=== PATIENT | female | born 1995 | race Caucasian/White ===

== ENCOUNTER 2024-01-10 21:45 | Emergency (ER) | payer MEDICAID, OTHER, SELFPAY ==
[2024-01-10 21:46] VITALS: BP 124/79; PULSE 72; RESP 22; TEMP 37.1; O2SAT 99; BMI 23.0
[2024-01-10 22:20] LABS: UR Morphine/Opiate cutoff 300 Negative (Negative); Ur Creatinine Normal (Normal); Ur Specific Gravity Normal (Normal); Urine Amphetamines Negative (Negative); Urine Barbiturates Negative (Negative); Urine Benzodiazepines Negative (Negative); Urine Cocaine Negative (Negative); Urine MDMA Negative (Negative); Urine Methadone Negative (Negative); Urine Methamphetamines Negative (Negative); Urine Oxycodone Negative (Negative); Urine Phencyclidine Negative (Negative); Urine Tetrahydrocannabinol Positive (Negative); Urine Tricyclic Antidepressant Negative (Negative); Urine pH Normal (Normal)
--- NOTE | 2024-01-10 22:20 | PC.NURSE ---
Patient getting agitated and restless, exiting room stating she wants to leave. Telling staff we are not even helping her and haven't even gave her any medications. This RN had just spoke with provider about patient's behavior and suicidal intent tonight leading to her coming to ER, MD gave verbal orders for PO Ativan. This RN approached patient and informed her we have medication to help ease her anxiety and agitation. She is agreeable to take medication but still wanting to leave ER. MD updated again and this RN requested he see her soon.
--- NOTE | 2024-01-10 22:20 | ED.PSYCH ---
HPI - Psych General Chief Complaint: Psychiatric Symptoms Stated Complaint: SI Time Seen by Provider: 01/10/24 22:19 Source: patient and other Mode of arrival: Family Vehicle History of Present Illness HPI Narrative: 28-year-old female with thoughts of harming herself by swallowing pills, denies actually swelling any pills, feels quite anxious, has not been able to sleep for multiple days. She denies drug or alcohol abuse. She denies recent illness symptoms, fevers, cough, shortness of breath, abdominal pain, diarrhea, nausea, vomiting. She denies any pain to head, face, neck, chest, upper back, lower back, abdomen, pelvis, upper extremities, lower extremities Related Data Home Medications Medication Instructions Recorded Confirmed divalproex 500 mg tablet,delayed 500 mg PO BID 01/10/24 01/10/24 release lamotrigine 200 mg tablet 200 mg PO DAILY 01/10/24 01/10/24 propranolol 10 mg tablet 10 mg PO BID PRN Anxiety 01/10/24 01/10/24 quetiapine 150 mg tablet,extended 150 mg PO ONCE PM 01/10/24 01/10/24 release 24 hr quetiapine 50 mg tablet 50 mg PO BEDTIME PRN Insomnia 01/10/24 01/10/24 Previous Rx's Medication Instructions Recorded hydroxyzine HCl 50 mg tablet 50 mg PO BEDTIME #7 tabs 01/10/24 Allergies Allergy/AdvReac Type Severity Reaction Status Date / Time tioconazole Allergy Verified 01/10/24 22:47 [From Monistat 1 (tioconazole)] Review of Systems Review of Systems Narrative: Per HPI Patient History Substance Use Type: marijuana Exam Narrative Exam Narrative: GENERAL: Well-developed patient, in mild distress. HEAD: Atraumatic. Normocephalic. EYES: Pupils equal round and reactive. Extraocular motions intact. No scleral icterus. No injection or drainage. ENT: Nose without bleeding, purulent drainage. Throat without erythema, tonsillar hypertrophy or exudate. Airway patent. Facial piercings, ear piercings, tongue piercing, earlobe gauges, none appear infected. NECK: Trachea midline. Non tender CARDIOVASCULAR: Regular rate and rhythm without murmurs, gallops, or rubs. RESPIRATORY: Clear to auscultation. Breath sounds equal bilaterally. No wheezes, rales, or rhonchi. GASTROINTESTINAL: Abdomen soft, non-tender, nondistended. EXTREMITIES: No edema or joint tenderness. BACK: Nontender without deformity or crepitance. No flank tenderness. NEURO: AOx3. SKIN: No rash or erythema of visible areas Initial Vital Signs Initial Vital Signs: Vital Signs Temperature 98.7 F 01/10/24 21:46 Pulse Rate 72 01/10/24 21:46 Respiratory Rate 22 01/10/24 21:46 Blood Pressure 124/79 01/10/24 21:46 Pulse Oximetry 99 01/10/24 21:46 Oxygen Delivery Method Room Air 01/10/24 21:46 Course Orders Ordered: ED Orders 01/10/24 22:04 COVID19 -Nasal RAPID Stat Urine Drug Screen, Rapid Stat 01/10/24 22:43 Acetaminophen Stat Complete Blood Count AUTO DIFF Stat Comprehensive Metabolic Panel Stat Ethanol (ETOH) Stat Free T4, Direct Thyroxine Stat Salicylate Stat Thyroid Stimulating Hormone Stat 01/10/24 22:46 Consult to [facility] [place] - Engineering Librarian Stat Discontinued Medications Hydroxyzine HCl (Hydroxyzine Hcl 25 Mg Tablet) 50 mg PO NOW ONE Stop: 01/10/24 23:26 Last Admin: 01/10/24 23:31 Dose: 50 mg Documented By: JOSEE Lorazepam (Lorazepam 0.5 Mg Tablet) 1 mg PO NOW ONE Stop: 01/10/24 22:21 Last Admin: 01/10/24 22:23 Dose: 1 mg Documented By: PIEDAD Potassium Chloride (Potassium Chloride 20 Meq/15 Ml Udc) 20 meq PO NOW ONE Stop: 01/10/24 23:19 Last Admin: 01/10/24 23:31 Dose: 20 meq Documented By: JOSEE Vital Signs Vital signs: Vital Signs - 8 hr 01/10/24 21:46 Temperature 98.7 F Pulse Rate 72 Respiratory Rate 22 Blood Pressure 124/79 Pulse Oximetry 99 Oxygen Delivery Method Room Air MDM - Psych Lab Data Attestation: I reviewed the patient's lab results. Lab results narrative: Mildly low potassium noted, UDS positive for cannabis. HCG negative. Serum CO2 24. Renal function normal. Liver functions unremarkable. 01/10/24 22:43 01/10/24 22:43 Labs: Lab Results 01/10/24 01/10/24 Range/Units 22:04 22:43 WBC 10.6 (4.5-11.0) X10^3/uL RBC 3.80 L (4.0-5.2) X10^6/uL Hgb 12.3 (12.0-16.0) g/dL Hct 35.2 L (36-46) % MCV 92.7 (80-100) fL MCH 32.4 (26-34) PG MCHC 34.9 (30-36) % RDW 13.1 (11.6-14.8) % Plt Count 233 (150-400) X10^3/uL Neut % (Auto) 65.6 (50-75) % Lymph % (Auto) 23.9 L (25-40) % [place] % (Auto) 9.7 (3-14) % Eos % (Auto) 0.5 L (2-4) % Baso % (Auto) 0.3 (0-2) % Neut # (Auto) 7000 (1077-7786) /uL Lymph # (Auto) 2500 (6991-1644) /uL [place]att # (Auto) 1000 H (0-900) /uL Eos # (Auto) 100 (0-450) /uL Baso # (Auto) 0 (0-100) /uL Sodium 141 (137-145) mmol/L Potassium 3.3 L (3.4-5.1) mmol/L Chloride 110 H (98-107) mmol/L Carbon Dioxide 24 (22-32) mmol/L BUN 14 (7-17) mg/dL Creatinine 0.95 (0.52-1.04) mg/dL Estimated GFR > 60 (>60) mL/min BUN/Creatinine Ratio 14.7 (6-22) Glucose 93 (70-100) mg/dL Calcium 8.9 (8.4-10.2) mg/dL Total Bilirubin 0.4 (0.2-1.3) mg/dL AST 25 (14-36) IU/L ALT 13 (<35) IU/L Alkaline Phosphatase 58 (38-126) U/L Total Protein 7.3 (6.3-8.2) g/dL Albumin 4.4 (3.5-5.0) g/dL Globulin 2.9 (1.7-4.1) g/dL Albumin/Globulin Ratio 1.5 (1.0-2.8) TSH 1.88 (0.47-4.68) uIU/mL Free T4 1.16 (0.78-2.19) ng/dL Salicylates 3.8 (<20) mg/dL U Opiates 300ng/mL cut Negative (Negative) Ur Oxycodone Screen Negative (Negative) Urine Methadone Screen Negative (Negative) Acetaminophen < 10 (10-30) ug/mL Ur Barbiturates Screen Negative (Negative) U Tricyclic Antidepress Negative (Negative) Ur Phencyclidine Scrn Negative (Negative) Ur Amphetamines Screen Negative (Negative) U Methamphetamines Scrn Negative (Negative) Ur MDMA Scrn (Ecstasy) Negative (Negative) U Benzodiazepines Scrn Negative (Negative) Urine Cocaine Screen Negative (Negative) U Marijuana (THC) Screen Positive H (Negative) Urine pH Normal (Normal) Urine Specific [place] Normal (Normal) Ethyl Alcohol < 10 ( - 10) mg/dL Ur Creatinine Normal (Normal) SARS-CoV-2 (PCR) Negative (Negative) Point of Care Testing Test Results Negative Urine Dip Bedside Urine Glucose Negative Bedside Urine Bilirubin - Negative Bedside Urine Ketone - Negative Urine Specific [place] 1.015 Bedside Urine Occult Blood +/- Bedside Urine pH 6.0 Bedside Urine Protein +/- 15 Bedside Urine Urobilinogen - Negative Bedside Urine Nitrite - Negative Bedside Urine Leukocytes - Negative Esterase MDM Narrative Medical decision making narrative: 28-year-old female with anxiety, had thoughts of hurting herself by swallowing pills, did not actually swallow any pills. Feels anxious, unable to sleep recent days. She is willing to take anti-anxiety medications. Screening labs sent. P.o. Ativan given Screening labs remarkable for urine drug screen positive for cannabis, ethanol negative, low potassium 3.3 mild, oral potassium repletion ordered and taken. Patient seemed interested in trial of hydroxyzine, p.o. hydroxyzine 50 mg dose ordered and taken. Patient feels improved, denies any thoughts of hurting herself or others, she would like to go home, friend/neighbor is willing to be with her [place] and to dispense her medications. Patient and friend feel that this is a safe plan, seems reasonable. Advised to contact her mental health provider on Friday. Return precautions discussed. Discharge Plan Departure Patient Disposition: Home Clinical Impression: Anxiety, Hypokalemia, History of bipolar disorder, Insomnia Activity Restrictions/Additional Instructions: History of bipolar disorder, anxiety, recent worsening of symptoms, increased anxiety, not sleeping well. Had initial thoughts swallowing medications, none actually ingested. Oral Ativan dose given, symptoms improved. Trial of hydroxyzine to help with sleep, 1 tablet at night, 7 tablets prescribed. Home tonight with friend who is willing to watch to, and to help dispensed your medications. Follow up with your mental health provider on Friday day after tomorrow. Mildly low blood potassium noted, oral potassium given, consider recheck potassium and follow up with the regular doctor. You denied thoughts of hurting herself or others. Return earlier to this/nearest emergency department for any change worsening symptoms or any concerns prior Prescriptions: New hydroxyzine HCl 50 mg tablet 50 mg PO BEDTIME Qty: 7 0RF No Action lamotrigine 200 mg tablet 200 mg PO DAILY divalproex 500 mg tablet,delayed release (DR/EC) 500 mg PO BID propranolol 10 mg tablet 10 mg PO BID PRN (Reason: Anxiety) quetiapine 50 mg tablet 50 mg PO BEDTIME PRN (Reason: Insomnia) Rx Instructions: Take 1-2 tablets by mouth at bedtime as needed for insomnia or anxiety. quetiapine 150 mg tablet extended release 24 hr 150 mg PO ONCE PM Referrals: Miscellaneous,Doctor, MD [Primary Care Provider] - Stand Alone Forms: Patient Portal/API
[2024-01-10] MEDS: LORazepam 0.5 MG TABLET 1 MG PO (22:23)
[2024-01-10 22:29] LABS: COVID19 -Nasal RAPID Negative (Negative)
[2024-01-10 22:53] LABS: Add Manual Diff / Slide Review NO; Basophils Absolute Auto 0 /uL (0-100); Basophils Percent Auto 0.3 % (0-2); Eosinophils Absolute Auto 100 /uL (0-450); Eosinophils Percent Auto 0.5 % (2-4); Hematocrit 35.2 % (36-46); Hemoglobin 12.3 g/dL (12.0-16.0); Lymphocytes Absolute Auto 2500 /uL (1100-4500); Lymphocytes Percent Auto 23.9 % (25-40); Mean Corpuscular HGB Conc 34.9 % (30-36); Mean Corpuscular Hemoglobin 32.4 PG (26-34); Mean Corpuscular Volume 92.7 fL (80-100); Monocytes Absolute Auto 1000 /uL (0-900); Monocytes Percent Auto 9.7 % (3-14); Neutrophils Absolute Auto 7000 /uL (1500-7000); Neutrophils Percent Auto 65.6 % (50-75); Platelet Count 233 X10^3/uL (150-400); Red Cell Distribution Width 13.1 % (11.6-14.8); White Blood Cell Count 10.6 X10^3/uL (4.5-11.0)
--- NOTE | 2024-01-10 23:00 | PC.NURSE ---
Upon arrival to ER, patient's friend handed over plastic bag of patient's filled medication bottles. Her friend states that these were the medications that patient was attempting to overdose on tonight. After triage, this RN took patients home medications to nurses station to update her med list on EMR. See EMR for list of medications that patient takes. Medications remain at nurses station.
[2024-01-10 23:04] LABS: Acetaminophen < 10 ug/mL (10-30); Alanine Aminotransferase 13 IU/L (<35); Albumin 4.4 g/dL (3.5-5.0); Albumin Globulin Ratio 1.5 (1.0-2.8); Alkaline Phosphatase 58 U/L (38-126); Aspartate Aminotransferase 25 IU/L (14-36); BUN Creatinine Ratio 14.7 (6-22); Bilirubin Total 0.4 mg/dL (0.2-1.3); Blood Urea Nitrogen 14 mg/dL (7-17); Calcium 8.9 mg/dL (8.4-10.2); Carbon Dioxide 24 mmol/L (22-32); Chloride 110 mmol/L (98-107); Estimated Glomerular Filt Rate > 60 mL/min (>60); Ethanol (ETOH) < 10 mg/dL; Globulin 2.9 g/dL (1.7-4.1); Glucose 93 mg/dL (70-100); HEMOLYSIS < 15 (0-50); Potassium 3.3 mmol/L (3.4-5.1); Salicylate 3.8 mg/dL (<20); Sodium 141 mmol/L (137-145); Total Protein 7.3 g/dL (6.3-8.2)
--- NOTE | 2024-01-10 23:17 | PC.NURSE ---
Patient requesting all home medications back so she can leave ER. Provider aware and states he will see patient soon. At this time staff trying to keep patient calm and encourage her to remain in ER for provider evaluation. Patient's friend remains present in room.
--- NOTE | 2024-01-10 23:30 | PC.NURSE ---
This RN again expressed to provider that patient is wanting to leave and her and her friend are wanting patient's medications handed back over so they can leave. Provider able to evaluate patient then and provider informs staff that patient's medications may be given back to friend who is present in room and that patient may discharge with her friend. Additional Rx ordered by provider and these were given by another RN prior to her discharge. Patient's friend states she is going to manage patient's medications. Patient's home meds given to patient's friend.
[2024-01-10] MEDS: POTASSIUM CHLORIDE 20 MEQ/15 ML UDC PO (23:31)
[2024-01-10] MEDS: hydrOXYzine HCL 25 MG TABLET 50 MG PO (23:31)
[2024-01-10 23:34] LABS: Free T4, Direct Thyroxine 1.16 ng/dL (0.78-2.19)
[2024-01-10 23:48] LABS: Thyroid Stimulating Hormone 1.88 uIU/mL (0.47-4.68)
== END 2024-01-10 23:45 | disposition home or self-care (01) ==
PROVIDERS: Emergency Provider Emergency Medicine
DX: F41.9 Anxiety disorder, unspecified (principal); E87.6 Hypokalemia; G47.00 Insomnia, unspecified; Z86.59 Personal history of other mental and behavioral disorders; Z11.52 Encounter for screening for COVID-19
CPT/HCPCS: 36415; 80053; 80305; 80320; 80329; 81003; 81025; 84439; 84443; 85025; 87635; 99284; A9270; G0480